=== PATIENT | female | born 1990 ===

== ENCOUNTER 2021-06-11 05:42 | Day surgery (SDC) | payer OTHER ==
[~2021-06-11] VITALS: Ht 162.6 cm; Wt 75.7 kg
[~2021-06-11 05:42] MED LIST: METFORMIN HCL500 M3 PO
== END 2021-06-11 17:10 | disposition home or self-care (01) ==
LOC: CIR.AMB 05:42
PROVIDERS: ATTEND Colon & Rectal Surgery
DX: K60.5 Anorectal fistula (principal); K60.0 Acute anal fissure; K21.9 Gastro-esophageal reflux disease without esophagitis; Z20.822 Contact with and (suspected) exposure to COVID-19